=== PATIENT | female | born 1985 | race Caucasian/White ===

== ENCOUNTER 2023-06-29 07:50 | Day surgery (SDC) | payer BC ==
[~2023-06-29 07:50] MED LIST: Sodium Chloride 0.9% 10 ML Syringe FLUSH PRN
[2023-06-29] MEDS ORDERED: fentaNYL 100 MCG/2 ML SDV IV ONE (07:51)
[2023-06-29] MEDS ORDERED: Glycopyrrolate 0.2 MG/ML 5 ML MDV IV ONE (07:51)
[2023-06-29] MEDS ORDERED: Rocuronium 100 MG/10 ML MDV IV ONE (07:51)
[2023-06-29] MEDS ORDERED: Lidocaine 1% PF 2 ML SDV IV ONE (07:51)
[2023-06-29] MEDS ORDERED: Lactated Ringers 1,000 ML IV ONE (07:51)
[2023-06-29] MEDS ORDERED: Midazolam 1 MG/ML 2 ML SDV IV ONE (07:51)
[2023-06-29] MEDS ORDERED: Propofol 200 MG/20 ML SDV IV ONE (07:51)
[2023-06-29] MEDS ORDERED: Ketorolac 30 MG/ML SDV IVPUSH ONE (07:51)
[2023-06-29] MEDS ORDERED: Neostigmine Methylsulfate 10 MG/10 ML MDV IVPUSH ONE (07:51)
[2023-06-29] MEDS ORDERED: Ondansetron 4 MG/2 ML SDV IVPUSH ONE (07:51)
[2023-06-29] MEDS: Lactated Ringers 1,000 ML IV SCH (08:25)
[2023-06-29] MEDS ORDERED: Acetaminophen/HYDROcodone 325-5 MG Tab PO PRN (10:32)
[2023-06-29] MEDS ORDERED: Morphine 2 MG/ML SYRINGE IVPUSH PRN (10:32)
== END 2023-06-29 11:50 | disposition home or self-care (01) ==
LOC: FB.SDS 07:50
PROVIDERS: ATTEND Surgery
DX: K80.10 Calculus of gallbladder with chronic cholecystitis without obstruction (principal); E66.9 Obesity, unspecified; F41.9 Anxiety disorder, unspecified; Z68.33 Body mass index [BMI] 33.0-33.9, adult; Z79.899 Other long term (current) drug therapy
CPT/HCPCS: 47562; 81025; 88304; J1885; J2250; J2405; J2704; J2710; J3010; J3490; J7120; 00790